=== PATIENT | female | born 2000 | race Caucasian/White ===

== ENCOUNTER 2018-02-19 14:28 | Emergency (ER) | payer MEDICAID ==
[~2018-02-19] VITALS: Ht 165.1 cm; Wt 74.0 kg
[~2018-02-19 14:28] MED LIST: CLIN-79 PO
[2018-02-19] MEDS ORDERED: NICO-687 TOP (15:08)
[2018-02-19] MEDS ORDERED: GUAI120015 PO (15:08)
[2018-02-19] MEDS ORDERED: BENZ-16 PO (15:08)
[2018-02-19 15:48] VITALS: BP 126/76
== END 2018-02-19 15:53 | disposition home or self-care (01) ==
LOC: ER 14:29
DX: F17.210 Nicotine dependence, cigarettes, uncomplicated (principal); R05 Cough; F15.10 Other stimulant abuse, uncomplicated; J45.909 Unspecified asthma, uncomplicated; Z88.1 Allergy status to other antibiotic agents
CPT/HCPCS: 99283

== ENCOUNTER 2018-02-23 16:42 | Emergency (ER) | payer MEDICAID ==
[~2018-02-23] VITALS: Ht 167.6 cm; Wt 80.0 kg
[~2018-02-23 16:42] MED LIST changes: +BENZ-16 PO; +GUAI120015 PO; +NICO-687 TOP
[2018-02-23 16:45] VITALS: BP 131/85
== END 2018-02-23 17:09 | disposition home or self-care (01) ==
LOC: ER 16:43
DX: K59.00 Constipation, unspecified (principal); F15.10 Other stimulant abuse, uncomplicated; J45.909 Unspecified asthma, uncomplicated; Z88.0 Allergy status to penicillin; Z88.1 Allergy status to other antibiotic agents; Z79.899 Other long term (current) drug therapy
CPT/HCPCS: 99281

== ENCOUNTER 2018-03-01 11:22 | Emergency (ER) | payer MEDICAID ==
[~2018-03-01] VITALS: Ht 167.6 cm; Wt 81.0 kg
[2018-03-01 11:59] VITALS: BP 117/71
== END 2018-03-01 12:04 | disposition home or self-care (01) ==
LOC: ER 11:22
DX: S00.81XA Abrasion of other part of head, initial encounter (principal); J45.909 Unspecified asthma, uncomplicated; F15.10 Other stimulant abuse, uncomplicated; Z88.0 Allergy status to penicillin; X58.XXXA Exposure to other specified factors, initial encounter; Y93.89 Activity, other specified; Y92.89 Other specified places as the place of occurrence of the external cause; Y99.8 Other external cause status
CPT/HCPCS: 99281